=== PATIENT | male | born 1940 | race Caucasian/White ===

== ENCOUNTER → 2017-04-06 | Outpatient (REF) | payer OTHER ==
[2017-04-06 18:53] LABS: MEAN CORPUSCULAR HEMOGLOBIN 32.9 pg (27.0-33.0); MEAN CORPUSCULAR HGB CONC 34.2 g/dl (32.0-36.5); MEAN CORPUSCULAR VOLUME 96.2 fl (80.0-96.0); RED CELL DISTRIBUTION WIDTH 13.9 % (11.5-14.5); WHITE BLOOD COUNT 8.4 K/mm3 (4.0-10.0)
[2017-04-06 19:05] LABS: VITAMIN B12 LEVEL 697 PG/ML (247-911)
[2017-04-06 19:06] LABS: FOLATE > 24.0 NG/ML (>5.4)
[2017-04-06 19:09] LABS: ALBUMIN 3.7 GM/DL (3.2-5.2); ALBUMIN/GLOBULIN RATIO 1.28 (1.00-1.93); ALKALINE PHOSPHATASE 80 U/L (45-117); ALT/SGPT 42 U/L (12-78); ANION GAP 8 MEQ/L (8-16); AST/SGOT 20 U/L (15-37); BILIRUBIN,TOTAL 0.6 MG/DL (0.2-1.0); BLOOD UREA NITROGEN 17 MG/DL (7-18); CALCIUM LEVEL 8.6 MG/DL (8.8-10.2); CARBON DIOXIDE LEVEL 27 MEQ/L (21-32); CHLORIDE LEVEL 105 MEQ/L (98-107); CHOLESTEROL LEVEL 135 MG/DL (<200); CREATININE FOR GFR 1.18 MG/DL (0.70-1.30); FREE T4 0.99 NG/DL (0.76-1.46); GLOMERULAR FILTRATION RATE > 60.0 (>42); GLUCOSE, FASTING 247 MG/DL (83-110); POTASSIUM SERUM 3.9 MEQ/L (3.5-5.1); SODIUM LEVEL 140 MEQ/L (136-145); TOTAL PROTEIN 6.6 GM/DL (6.4-8.2); TRIGLYCERIDES LEVEL 176 MG/DL (<150); URIC ACID 4.3 MG/DL (3.5-7.2)
== END ==
LOC: M SFHCADAM 13:55
PROVIDERS: ATTEND Nurse Practitioner Family
DX: N18.3 Chronic kidney disease, stage 3 (moderate) (principal); E11.49 Type 2 diabetes mellitus with other diabetic neurological complication; R41.3 Other amnesia; E78.2 Mixed hyperlipidemia; M10.9 Gout, unspecified

== ENCOUNTER → 2017-05-26 | Outpatient (REF) | payer OTHER ==
[~2017-05-26] MED LIST: ALLO15TA PO; AMLO5TAB2 PO; BISO5TAB5 PO; FOSI40TA PO; FURO40TA2 PO; INSUN SC; INSUR SC; SIMV20TA2 PO; TYLE500T78 PO; XARE20TA PO
[2017-05-26 20:31] LABS: MEAN CORPUSCULAR HEMOGLOBIN 33.4 pg (27.0-33.0); WHITE BLOOD COUNT 9.7 K/mm3 (4.0-10.0)
== END ==
LOC: M SFHCADAM 14:43
PROVIDERS: ATTEND Family Medicine
DX: K62.5 Hemorrhage of anus and rectum (principal)

== ENCOUNTER → 2017-07-05 | Outpatient (REF) | payer OTHER ==
[2017-07-05 13:25] LABS: ALBUMIN 3.9 GM/DL (3.2-5.2); ALBUMIN/GLOBULIN RATIO 1.39 (1.00-1.93); BILIRUBIN,TOTAL 0.8 MG/DL (0.2-1.0); CALCIUM LEVEL 8.4 MG/DL (8.8-10.2); CREATININE FOR GFR 1.25 MG/DL (0.70-1.30); GLOMERULAR FILTRATION RATE 59.9 (>42); POTASSIUM SERUM 4.2 MEQ/L (3.5-5.1); TOTAL PROTEIN 6.7 GM/DL (6.4-8.2)
== END ==
LOC: M SFHCADAM 11:06
PROVIDERS: ATTEND Nurse Practitioner Family
DX: E11.49 Type 2 diabetes mellitus with other diabetic neurological complication (principal)
CPT/HCPCS: 80053; 83036; G0463

== ENCOUNTER 2017-07-15 09:22 | Outpatient (CLI) | payer OTHER ==
[~2017-07-15] VITALS: Ht 167.6 cm; Wt 93.9 kg
[~2017-07-15 09:22] MED LIST changes: +NS 1,000 ML IV ONE
--- NOTE | 2017-07-15 11:38 | ROOR ---
Patient Name: Caleb Nicholas Procedure Date: 07/15/2017 11:19 AM Date of : 1940 Age: 76 Room: [facility] Gender: Male Note Status: Finalized Procedure: Colonoscopy Indications: Rectal bleeding Providers: Jose Wong Jr, MD Referring MD: James Prado MD Requesting Provider: Medicines: Propofol per Anesthesia Complications: No immediate complications. Procedure: Pre-Anesthesia Assessment: - Prior to the procedure, a History and Physical was performed, and patient medications and allergies were reviewed. The patient is competent. The risks and benefits of the procedure and the sedation options and risks were discussed with the patient. All questions were answered and informed consent was obtained. Patient identification and proposed procedure were verified by the physician and the nurse in the pre-procedure area and in the procedure room. Mental Status Examination: alert and oriented. Airway Examination: normal oropharyngeal airway and neck mobility. Respiratory Examination: clear to auscultation. CV Examination: normal. ASA Grade Assessment: II - A patient with mild systemic disease. After reviewing the risks and benefits, the patient was deemed in satisfactory condition to undergo the procedure. The anesthesia plan was to use moderate sedation / analgesia (conscious sedation). Immediately prior to administration of medications, the patient was re-assessed for adequacy to receive sedatives. The heart rate, respiratory rate, oxygen saturations, blood pressure, adequacy of pulmonary ventilation, and response to care were monitored throughout the procedure. The physical status of the patient was re-assessed after the procedure. The Colonoscope was introduced through the anus and advanced to the cecum, identified by appendiceal orifice and ileocecal valve. The colonoscopy was performed without difficulty. The patient tolerated the procedure well. The quality of the bowel preparation was adequate and good. Findings: Multiple small and large-mouthed diverticula were found in the sigmoid colon. Non-bleeding internal hemorrhoids were found during endoscopy. The hemorrhoids were moderate. The rectum, recto-sigmoid colon, descending colon, transverse colon, ascending colon, cecum, appendiceal orifice and ileocecal valve appeared normal. Impression: - Diverticulosis in the sigmoid colon. - Non-bleeding internal hemorrhoids. - The rectum, recto-sigmoid colon, descending colon, transverse colon, ascending colon, cecum, appendiceal orifice and ileocecal valve are normal. - No specimens collected. Recommendation: - Discharge patient to home (ambulatory). - Repeat colonoscopy in 10 years for screening purposes. Jose Wong MD Jose Wong Jr, MD 07/15/2017 11:37:26 AM This report has been signed electronically. Number of Addenda: 0 Note Initiated On: 07/15/2017 11:19 AM Estimated Blood Loss: Estimated blood loss: none.
[2017-07-15 11:55] VITALS: BP 140/67
[2017-07-15] MEDS ORDERED: PROPOFOL 500 MG/50 ML VIAL As Ordered ONE (11:57)
[2017-07-15] MEDS ORDERED: LIDOCAINE 2% INJ 100 MG/5 ML SDV (FOR ANES.) As Ordered ONE (11:57)
== END 2017-07-15 12:05 | disposition home or self-care (01) ==
LOC: M OPP 09:22
PROVIDERS: ATTEND Surgery
DX: K62.5 Hemorrhage of anus and rectum (principal); Z86.010 Personal history of colon polyps; K64.8 Other hemorrhoids; K57.30 Diverticulosis of large intestine without perforation or abscess without bleeding; I10 Essential (primary) hypertension; E11.9 Type 2 diabetes mellitus without complications; I48.91 Unspecified atrial fibrillation; N40.0 Benign prostatic hyperplasia without lower urinary tract symptoms; G62.9 Polyneuropathy, unspecified; E78.5 Hyperlipidemia, unspecified; I25.10 Atherosclerotic heart disease of native coronary artery without angina pectoris; E66.9 Obesity, unspecified; G47.30 Sleep apnea, unspecified; M10.9 Gout, unspecified; E88.81 Metabolic syndrome and other insulin resistance; Z95.5 Presence of coronary angioplasty implant and graft; Z79.4 Long term (current) use of insulin; Z79.899 Other long term (current) drug therapy; Z88.6 Allergy status to analgesic agent; Z88.8 Allergy status to other drugs, medicaments and biological substances

== ENCOUNTER → 2017-07-19 | Outpatient (CLI) | payer OTHER ==
[~2017-07-19] MED LIST changes: -NS 1,000 ML IV ONE
--- NOTE | 2017-07-19 08:48 | REP ---
CT brain without contrast: 07/19/2017. Clinical history: Memory impairment. Comparison: 08/22/2015. Findings: Noncontrast images show the lateral ventricles midline, symmetric, dilated in proportion to the moderately severe diffuse atrophy. There is laminar necrosis involving the occipital cortex bilaterally, left greater than right and unchanged. There is extensive chronic small vessel white matter ischemic disease of aging in periventricular deep and subcortical white matter tracts. Degree of atrophy is same or slightly greater than the study 2 years ago. There is calcification in the right basal ganglia, unchanged. No acute infarct, intra or extra-axial hemorrhage, mass, mass effect or edema. Mastoids and sphenoid sinuses are clear. There is bilateral ethmoid sinus mucosal thickening. The skull base and calvarium show no fracture or focal lesion. Brainstem was intact. There is a cerebral atrophy, unchanged. Impression: 1. Moderately diffuse cerebral atrophy with extensive small vessel ischemic disease and ventriculomegaly in proportion. 2. Laminar necrosis occipital cortex bilaterally, left greater than right. Old ischemia. 3. Vascular calcifications carotid siphons and some ethmoid sinus mucosal disease. Signed by Reid Ma MD 07/19/2017 03:38 P
== END ==
LOC: M RAD 07:21
PROVIDERS: ATTEND Nurse Practitioner Family
DX: R41.3 Other amnesia (principal)

== ENCOUNTER → 2017-09-06 | Outpatient (CLI) | payer OTHER ==
--- NOTE | 2017-09-06 13:43 | REP ---
Comparison CT 07/19/2017. Areas of increased signal intensity on T2-weighted images are present in the periventricular and subcortical white matter. This represents small vessel ischemic disease. Slight increased signal intensity on T1-weighted images is present in the cortex of the posterior left parietal lobe and left occipital lobe. This represents laminar necrosis. There is no acute intraparenchymal hemorrhage, acute infarct, mass, or midline shift. The ventricular system and cortical sulci are dilated consistent with mild volume loss. There is no extracerebral collection. Mucosal thickening is present in then ethmoid and maxillary sinuses. IMPRESSION: 1. Small vessel ischemic disease. 2. There is laminar necrosis in the posterior left parietal and left occipital lobes. 3. Mild volume loss. Signed by Stanley Ríos MD 09/06/2017 02:18 P
== END ==
LOC: M PLARAD 10:27
PROVIDERS: ATTEND Psychiatry & Neurology Neurology
DX: R41.3 Other amnesia (principal); G47.51 Confusional arousals; I73.9 Peripheral vascular disease, unspecified
CPT/HCPCS: 70551; G0463

== ENCOUNTER 2017-11-23 18:20 | Observation (INO) | payer OTHER ==
[2017-11-23 22:03] LABS: ANION GAP 5 MEQ/L (8-16); BLOOD UREA NITROGEN 20 MG/DL (7-18); CALCIUM LEVEL 8.4 MG/DL (8.8-10.2); CARBON DIOXIDE LEVEL 33 MEQ/L (21-32); CHLORIDE LEVEL 104 MEQ/L (98-107); CREATININE FOR GFR 1.18 MG/DL (0.70-1.30); GLOMERULAR FILTRATION RATE > 60.0 (>42); GLUCOSE, FASTING 205 MG/DL (83-110); POTASSIUM SERUM 3.3 MEQ/L (3.5-5.1); SODIUM LEVEL 142 MEQ/L (136-145)
[2017-11-23 22:04] LABS: BASO % 0.4 % (0.0-1.0); EOS # 0.2 10^3/uL (0.0-0.50); HEMATOCRIT 36.3 % (42.0-52.0); HEMOGLOBIN 12.5 g/dl (14.0-18.0); IMMATURE GRANULOCYTE % 0.3 % (0-0); LYMPH % 21.4 % (24.0-44.0); MEAN CORPUSCULAR HEMOGLOBIN 32.3 pg (27.0-33.0); MEAN CORPUSCULAR HGB CONC 34.4 g/dl (32.0-36.5); MEAN CORPUSCULAR VOLUME 93.8 fl (80.0-96.0); MONO # 0.8 10^3/uL (0.0-0.8); MONO % 8.8 % (0.0-5.0); NEUTROPHILS # 6.4 10^3/uL (1.8-7.7); NEUTROPHILS % 67.1 % (36.0-66.0); PLATELET COUNT, AUTOMATED 184 10^3/uL (150-450); RED BLOOD COUNT 3.87 10^6/uL (4.30-6.10); WHITE BLOOD COUNT 9.5 10^3/uL (4.0-10.0)
[2017-11-23 22:06] LABS: NT-PRO BNP 2454 PG/ML (<450)
[2017-11-23 22:15] LABS: INR 1.94; PROTHROMBIN TIME 22.8 SECONDS (12.4-14.5)
[2017-11-23 22:16] LABS: PARTIAL THROMBOPLASTIN TIME 56.8 SECONDS (26.8-37.9)
[2017-11-23] MEDS: FUROSEMIDE 100 MG/10 ML VIAL (J1940) IV (23:00)
[2017-11-23] MEDS: POTASSIUM CHLORIDE 10 MEQ SR TABLET PO (23:30)
[2017-11-24 00:42] LABS: CK-MB VALUE MASS 5.2 NG/ML (0.0-3.6); CPK CREATINE PHOSPHOKINASE 198 U/L (39-308); MB/CK RELATIVE INDEX 2.62 (< OR =4); TROPONIN I < 0.02 NG/ML (< 0.10)
[2017-11-24] MEDS ORDERED: ONDANSETRON 4MG/2ML VIAL (J2405) IV (01:45)
[2017-11-24] MEDS ORDERED: DEXTROSE 50% 50 ML SYRINGE IV (01:45)
[2017-11-24] MEDS ORDERED: GLUCOSE 4 GM CHEW TABLET PO (01:45)
[2017-11-24] MEDS ORDERED: GLUCAGON FOR INJ 1 MG VIAL (J1610) SC (01:45)
[2017-11-24] MEDS: BISOPROLOL FUMARATE 5 MG TAB PO ×3 (03:48→20:23)
[2017-11-24] MEDS: DOCUSATE SODIUM 100 MG CAP PO ×3 (03:48→20:23)
[2017-11-24] MEDS: SIMVASTATIN 20 MG TAB PO ×2 (03:53→20:23)
[2017-11-24] MEDS: amLODIPine 5 MG TAB PO ×2 (03:53→20:24)
[2017-11-24] MEDS: RIVAROXABAN 20 MG TAB (XARELTO) PO ×2 (03:53→20:24)
[2017-11-24 06:02] LABS: CK-MB VALUE MASS 3.8 NG/ML (0.0-3.6); CPK CREATINE PHOSPHOKINASE 142 U/L (39-308); MB/CK RELATIVE INDEX 2.67 (< OR =4); TROPONIN I < 0.02 NG/ML (< 0.10)
[2017-11-24] MEDS: FUROSEMIDE 40 MG/4 ML VIAL (J1940) IV ×3 (06:05→17:58)
[2017-11-24 06:35] LABS: BEDSIDE GLUCOSE 212 MG/DL (83-110)
[2017-11-24] MEDS: HumaLOG INSULIN (NovoLOG) PER UNIT SC ×4 (08:19→21:00)
[2017-11-24] MEDS: DONEPEZIL 5 MG TAB PO (08:19)
[2017-11-24] MEDS: SERTRALINE HCL 50 MG TAB PO (08:19)
[2017-11-24] MEDS: FOSINOPRIL 20 MG TAB PO (08:20)
[2017-11-24] MEDS: ALLOPURINOL 300 MG TAB PO (08:20)
[2017-11-24 12:22] LABS: BEDSIDE GLUCOSE 196 MG/DL (83-110)
[2017-11-24 13:38] LABS: CPK CREATINE PHOSPHOKINASE 142 U/L (39-308); TROPONIN I < 0.02 NG/ML (< 0.10)
[2017-11-24 13:39] LABS: CK-MB VALUE MASS 3.3 NG/ML (0.0-3.6); MB/CK RELATIVE INDEX 2.32 (< OR =4)
[2017-11-24] MEDS ORDERED: NITROGLYCERIN 0.4 MG SUBL TABLET As Ordered (16:54)
[2017-11-24 16:58] LABS: BEDSIDE GLUCOSE 258 MG/DL (83-110)
[2017-11-24] MEDS ORDERED: NITROGLYCERIN 0.4 MG SUBL TABLET SL (17:00)
[2017-11-24] MEDS: LORazepam 0.5 MG TAB PO (17:14)
[2017-11-24 18:04] LABS: CK-MB VALUE MASS 3.3 NG/ML (0.0-3.6); CPK CREATINE PHOSPHOKINASE 135 U/L (39-308); MB/CK RELATIVE INDEX 2.44 (< OR =4); TROPONIN I < 0.02 NG/ML (< 0.10)
[2017-11-24] MEDS: ACETAMINOPHEN TAB 650MG DOSE (2X325MG) PO (20:16)
[2017-11-24 21:35] LABS: BEDSIDE GLUCOSE 261 MG/DL (83-110)
== END 2017-11-24 22:05 | disposition left against medical advice (07) ==
LOC: M ED INP 11-24 01:44 → M ED 18:20 → M MSPAV 11-24 03:36
DX: I50.9 Heart failure, unspecified (principal); I48.91 Unspecified atrial fibrillation; I13.0 Hypertensive heart and chronic kidney disease with heart failure and stage 1 through stage 4 chronic kidney disease, or unspecified chronic kidney disease; F03.91 Unspecified dementia, unspecified severity, with behavioral disturbance; E11.42 Type 2 diabetes mellitus with diabetic polyneuropathy; Z91.81 History of falling; E78.5 Hyperlipidemia, unspecified; N18.3 Chronic kidney disease, stage 3 (moderate); I25.10 Atherosclerotic heart disease of native coronary artery without angina pectoris; R53.1 Weakness; E11.22 Type 2 diabetes mellitus with diabetic chronic kidney disease; N40.0 Benign prostatic hyperplasia without lower urinary tract symptoms; M10.9 Gout, unspecified; Z95.5 Presence of coronary angioplasty implant and graft; Z86.73 Personal history of transient ischemic attack (TIA), and cerebral infarction without residual deficits; Z79.899 Other long term (current) drug therapy; Z79.01 Long term (current) use of anticoagulants; Z79.4 Long term (current) use of insulin; Z88.8 Allergy status to other drugs, medicaments and biological substances
CPT/HCPCS: 96376

== ENCOUNTER → 2017-12-07 | Outpatient (REF) | payer OTHER ==
[2017-12-07 20:41] LABS: HEMOGLOBIN 11.8 g/dl (14.0-18.0); MEAN CORPUSCULAR HGB CONC 31.9 g/dl (32.0-36.5); MEAN CORPUSCULAR VOLUME 97.1 fl (80.0-96.0); PLATELET COUNT, AUTOMATED 208 10^3/uL (150-450); RED BLOOD COUNT 3.81 10^6/uL (4.30-6.10); RED CELL DISTRIBUTION WIDTH 13.1 % (11.5-14.5); WHITE BLOOD COUNT 10.5 10^3/uL (4.0-10.0)
[2017-12-07 20:55] LABS: ESTIMATED AVERAGE GLUCOSE 174 MG/DL (60-110); HEMOGLOBIN A1c 7.7 %
[2017-12-07 21:01] LABS: ALBUMIN/GLOBULIN RATIO 1.29 (1.00-1.93); ALKALINE PHOSPHATASE 115 U/L (45-117); ALT/SGPT 35 U/L (12-78); ANION GAP 7 MEQ/L (8-16); AST/SGOT 25 U/L (7-37); BILIRUBIN,TOTAL 0.7 MG/DL (0.2-1.0); BLOOD UREA NITROGEN 16 MG/DL (7-18); CALCIUM LEVEL 8.9 MG/DL (8.8-10.2); CARBON DIOXIDE LEVEL 32 MEQ/L (21-32); CHLORIDE LEVEL 105 MEQ/L (98-107); CHOLESTEROL LEVEL 125 MG/DL (<200); CHOLESTEROL RISK RATIO 3.205 (<5); GLOMERULAR FILTRATION RATE > 60.0 (>42); GLUCOSE, FASTING 69 MG/DL (70-100); HDL CHOLESTEROL 39 MG/DL (>40); LDL CHOLESTEROL 57.8 MG/DL (<100); NON-HDL-C 86 MG/DL; SODIUM LEVEL 144 MEQ/L (136-145); TOTAL PROTEIN 7.1 GM/DL (6.4-8.2); TRIGLYCERIDES LEVEL 141 MG/DL (<150); URIC ACID 4.3 MG/DL (3.5-7.2)
== END ==
LOC: M SFHCADAM 11:15
DX: F03.91 Unspecified dementia, unspecified severity, with behavioral disturbance (principal); N18.3 Chronic kidney disease, stage 3 (moderate); E11.49 Type 2 diabetes mellitus with other diabetic neurological complication; E11.22 Type 2 diabetes mellitus with diabetic chronic kidney disease; I25.10 Atherosclerotic heart disease of native coronary artery without angina pectoris; I65.29 Occlusion and stenosis of unspecified carotid artery; M10.9 Gout, unspecified
CPT/HCPCS: 84550

== ENCOUNTER → 2018-01-27 | Outpatient (REF) | payer OTHER ==
[2018-01-27 12:17] LABS: HEMATOCRIT 38.5 % (42.0-52.0); MEAN CORPUSCULAR HEMOGLOBIN 31.4 pg (27.0-33.0); MEAN CORPUSCULAR HGB CONC 33.8 g/dl (32.0-36.5); PLATELET COUNT, AUTOMATED 217 10^3/uL (150-450); RED BLOOD COUNT 4.14 10^6/uL (4.30-6.10); WHITE BLOOD COUNT 13.4 10^3/uL (4.0-10.0)
[2018-01-27 12:33] LABS: ALBUMIN/GLOBULIN RATIO 1.25 (1.00-1.93); ALKALINE PHOSPHATASE 102 U/L (45-117); ALT/SGPT 36 U/L (12-78); ANION GAP 8 MEQ/L (8-16); AST/SGOT 26 U/L (7-37); BILIRUBIN,TOTAL 0.7 MG/DL (0.2-1.0); BLOOD UREA NITROGEN 26 MG/DL (7-18); CALCIUM LEVEL 9.3 MG/DL (8.8-10.2); CARBON DIOXIDE LEVEL 30 MEQ/L (21-32); CHLORIDE LEVEL 104 MEQ/L (98-107); CHOLESTEROL LEVEL 128 MG/DL (<200); CHOLESTEROL RISK RATIO 3.282 (<5); CREATININE FOR GFR 1.24 MG/DL (0.70-1.30); GLOMERULAR FILTRATION RATE > 60.0 (>42); GLUCOSE, FASTING 89 MG/DL (70-100); HDL CHOLESTEROL 39 MG/DL (>40); NON-HDL-C 89 MG/DL; POTASSIUM SERUM 4.5 MEQ/L (3.5-5.1); SODIUM LEVEL 142 MEQ/L (136-145); TOTAL PROTEIN 7.2 GM/DL (6.4-8.2); TRIGLYCERIDES LEVEL 160 MG/DL (<150)
[2018-01-27 13:40] LABS: ESTIMATED AVERAGE GLUCOSE 166 MG/DL (60-110); HEMOGLOBIN A1c 7.4 %
[2018-01-29 00:06] LABS: DEAMIDATED GLIADIN ABS, IgA 1 units (0-19); DEAMIDATED GLIADIN ABS, IgG 1 units (0-19); ENDOMYSIAL ANTIBODY IgA Negative (Negative); IMMUNOGLOBULIN A 100 mg/dL (61-437); t-TRANSGLUTAMINASE(tTG) IgA <2 U/mL (0-3); t-TRANSGLUTAMINASE(tTG) IgG <2 U/mL (0-5)
== END ==
LOC: M SFHCADAM 10:11
DX: K52.9 Noninfective gastroenteritis and colitis, unspecified (principal); N18.3 Chronic kidney disease, stage 3 (moderate); E11.49 Type 2 diabetes mellitus with other diabetic neurological complication; I25.10 Atherosclerotic heart disease of native coronary artery without angina pectoris; I65.29 Occlusion and stenosis of unspecified carotid artery
CPT/HCPCS: 80053

== ENCOUNTER → 2018-04-11 | Outpatient (REF) | payer OTHER ==
[2018-04-15 00:07] LABS: O+P EXAM Final report (.)
[2018-04-15 00:07] LABS: CALPROTECTIN STOOL <16 ug/g (0-120)
== END ==
LOC: M LAB REF 12:14
DX: R19.7 Diarrhea, unspecified (principal)
CPT/HCPCS: 87177

== ENCOUNTER 2018-05-12 13:34 | Inpatient (IN) | payer OTHER ==
[2018-05-12 14:48] LABS: BASO % 0.2 % (0.0-1.0); EOS # 0.1 10^3/uL (0.0-0.50); EOS % 1.1 % (0.0-3.0); HEMATOCRIT 36.2 % (42.0-52.0); HEMOGLOBIN 12.5 g/dl (13.5-17.5); IMMATURE GRANULOCYTE % 0.3 % (0-3.0); LYMPH # 1.8 10^3/uL (1.5-4.5); LYMPH % 15.6 % (24.0-44.0); MEAN CORPUSCULAR HEMOGLOBIN 32.7 pg (27.0-33.0); MEAN CORPUSCULAR HGB CONC 34.5 g/dl (32.0-36.5); MEAN CORPUSCULAR VOLUME 94.8 fl (80.0-96.0); MONO # 1.3 10^3/uL (0.0-0.8); MONO % 11.1 % (0.0-5.0); NEUTROPHILS # 8.2 10^3/uL (1.8-7.7); NEUTROPHILS % 71.7 % (36.0-66.0); PLATELET COUNT, AUTOMATED 186 10^3/uL (150-450); RED BLOOD COUNT 3.82 10^6/uL (4.30-6.10); RED CELL DISTRIBUTION WIDTH 13.1 % (11.5-14.5); WHITE BLOOD COUNT 11.5 10^3/uL (4.0-10.0)
[2018-05-12] MEDS: NS 1,000 ML IV ×2 (15:06→20:55)
[2018-05-12 15:12] LABS: ACETAMINOPHEN LEVEL < 2.0 UG/ML (10.0-30.0); ALBUMIN 3.5 GM/DL (3.2-5.2); ALBUMIN/GLOBULIN RATIO 0.92 (1.00-1.93); ALKALINE PHOSPHATASE 95 U/L (45-117); ALT/SGPT 30 U/L (12-78); ANION GAP 9 MEQ/L (8-16); AST/SGOT 19 U/L (7-37); BILIRUBIN,DIRECT 0.3 MG/DL (0.0-0.2); BLOOD UREA NITROGEN 30 MG/DL (7-18); CALCIUM LEVEL 8.9 MG/DL (8.8-10.2); CARBON DIOXIDE LEVEL 28 MEQ/L (21-32); CHLORIDE LEVEL 102 MEQ/L (98-107); CPK CREATINE PHOSPHOKINASE 76 U/L (39-308); CREATININE FOR GFR 1.64 MG/DL (0.70-1.30); ETHYL ALCOHOL (ETHANOL) 0.005 % (0.000-0.010); GLOMERULAR FILTRATION RATE 43.7 (>42); GLUCOSE, FASTING 207 MG/DL (70-100); POTASSIUM SERUM 4.1 MEQ/L (3.5-5.1); SALICYLATE LEVEL < 1.7 MG/DL (5.0-30.0); SODIUM LEVEL 139 MEQ/L (136-145); TOTAL PROTEIN 7.3 GM/DL (6.4-8.2); TROPONIN I < 0.02 NG/ML (< 0.10)
[2018-05-12 15:17] LABS: CK-MB VALUE MASS 1.7 NG/ML (<3.6); MB/CK RELATIVE INDEX 2.23 (< OR =4)
[2018-05-12 15:27] LABS: LACTIC ACID SEPSIS PROTOCOL 1.3 MMOL/L (0.4-2.0)
[2018-05-12] MEDS: RIVAROXABAN 20 MG TAB (XARELTO) PO (18:00)
[2018-05-12] MEDS ORDERED: ACETAMINOPHEN 500 MG TAB PO (18:30)
[2018-05-12] MEDS ORDERED: GLUCAGON FOR INJ 1 MG VIAL (J1610) SC (18:30)
[2018-05-12] MEDS ORDERED: DEXTROSE 50% 50 ML SYRINGE IV (18:30)
[2018-05-12] MEDS ORDERED: GLUCOSE 4 GM CHEW TABLET PO (18:30)
[2018-05-12 18:34] LABS: INR 1.52; PROTHROMBIN TIME 18.5 SECONDS (12.1-14.4)
[2018-05-12 19:12] LABS: KETONE, URINE AUTO RFX NEGATIVE (NEGATIVE); LEUKOCYTE ESTERASE UR AUTO RFX NEGATIVE (NEGATIVE); MUCUS, URINE RFX SMALL (NEGATIVE); NITRITE, URINE AUTO RFX NEGATIVE (NEGATIVE); RBC, URINE AUTO RFX 0 /HPF (0-3); SPECIFIC GRAVITY UR AUTO RFX 1.013 (1.002-1.035); SQUAM EPITHELIAL CELL UR AURFX 0 /HPF (0-6); WBC, URINE AUTO RFX 1 /HPF (0-3)
[2018-05-12 19:45] LABS: AMPHETAMINES LEVEL URINE NEGATIVE (NEGATIVE); BARBITURATES URINE NEGATIVE (NEGATIVE); BENZODIAZEPINES URINE NEGATIVE (NEGATIVE); CANNABINOIDS URINE NEGATIVE (NEGATIVE); COCAINE METABOLITE URINE NEGATIVE (NEGATIVE); METHADONE URINE NEGATIVE (NEGATIVE); OPIATES URINE NEGATIVE (NEGATIVE); PHENCYCLIDINE URINE NEGATIVE (NEGATIVE)
[2018-05-12] MEDS: LORazepam 2 MG/ML VIAL (J2060) IV (19:58)
[2018-05-12] MEDS: HumaLOG INSULIN (NovoLOG) PER UNIT SC (20:59)
[2018-05-12] MEDS: BISOPROLOL FUMARATE 5 MG TAB PO ×2 (21:00→21:06)
[2018-05-12] MEDS: SIMVASTATIN 20 MG TAB PO ×2 (21:00→21:06)
[2018-05-12] MEDS: QUEtiapine FUMARATE 25 MG TAB PO ×2 (21:00→21:06)
[2018-05-12 21:02] LABS: BEDSIDE GLUCOSE 239 MG/DL (83-110)
[2018-05-12] MEDS ORDERED: HEPARIN SOD (PORCINE) 5000 UNITS/ML VIAL SC (22:00)
[2018-05-13] MEDS: NS 1,000 ML IV ×2 (01:46→10:20)
[2018-05-13 05:24] LABS: ANION GAP 6 MEQ/L (8-16); BLOOD UREA NITROGEN 19 MG/DL (7-18); CALCIUM LEVEL 8.8 MG/DL (8.8-10.2); CARBON DIOXIDE LEVEL 29 MEQ/L (21-32); CHLORIDE LEVEL 105 MEQ/L (98-107); CREATININE FOR GFR 1.17 MG/DL (0.70-1.30); GLOMERULAR FILTRATION RATE > 60.0 (>42); GLUCOSE, FASTING 241 MG/DL (70-100); POTASSIUM SERUM 4.3 MEQ/L (3.5-5.1); SODIUM LEVEL 140 MEQ/L (136-145)
[2018-05-13] MEDS ORDERED: HumaLOG INSULIN (NovoLOG) PER UNIT SC ×2 (07:30→12:00)
[2018-05-13] MEDS ORDERED: DEXTROSE 50% 50 ML SYRINGE IV (09:00)
[2018-05-13] MEDS ORDERED: GLUCAGON FOR INJ 1 MG VIAL (J1610) SC (09:00)
[2018-05-13] MEDS ORDERED: GLUCOSE 4 GM CHEW TABLET PO (09:00)
[2018-05-13] MEDS: HumuLIN R (REGULAR) INSULIN (NovoLIN R) **100U/ML** PER UNIT SC (10:06)
[2018-05-13] MEDS: HumuLIN N INSULIN (NovoLIN N) PER UNIT SC (10:06)
[2018-05-13] MEDS: FOSINOPRIL 20 MG TAB PO (10:13)
[2018-05-13] MEDS: FUROSEMIDE 40 MG TAB PO ×2 (10:13→17:43)
[2018-05-13] MEDS: SERTRALINE HCL 50 MG TAB PO (10:14)
[2018-05-13] MEDS: BISOPROLOL FUMARATE 5 MG TAB PO ×2 (10:14→21:18)
[2018-05-13] MEDS: ALLOPURINOL 300 MG TAB PO (10:14)
[2018-05-13] MEDS: HALOPERIDOL 1 MG TAB PO ×3 (13:02→21:18)
[2018-05-13 13:07] LABS: BEDSIDE GLUCOSE 380 MG/DL (83-110)
[2018-05-13] MEDS: HumaLOG INSULIN (NovoLOG) PER UNIT SC ×3 (14:13→21:00)
[2018-05-13 16:47] LABS: BEDSIDE GLUCOSE 302 MG/DL (83-110)
[2018-05-13] MEDS: RIVAROXABAN 20 MG TAB (XARELTO) PO (17:42)
[2018-05-13 19:06] LABS: BEDSIDE GLUCOSE 248 MG/DL (83-110)
[2018-05-13 20:50] LABS: BEDSIDE GLUCOSE 205 MG/DL (83-110)
[2018-05-13] MEDS: QUEtiapine FUMARATE 25 MG TAB PO (21:18)
[2018-05-13] MEDS: SIMVASTATIN 20 MG TAB PO (21:18)
[2018-05-13] MEDS: amLODIPine 5 MG TAB PO (21:18)
[2018-05-13] MEDS: ACETAMINOPHEN 500 MG TAB PO (23:39)
[2018-05-14 05:23] LABS: BASO % 0.2 % (0.0-1.0); EOS # 0.1 10^3/uL (0.0-0.50); HEMATOCRIT 36.2 % (42.0-52.0); HEMOGLOBIN 12.4 g/dl (13.5-17.5); IMMATURE GRANULOCYTE % 0.4 % (0-3.0); LYMPH # 1.4 10^3/uL (1.5-4.5); LYMPH % 15.6 % (24.0-44.0); MEAN CORPUSCULAR HGB CONC 34.3 g/dl (32.0-36.5); MEAN CORPUSCULAR VOLUME 93.5 fl (80.0-96.0); MONO # 1.1 10^3/uL (0.0-0.8); NEUTROPHILS # 6.4 10^3/uL (1.8-7.7); NEUTROPHILS % 70.8 % (36.0-66.0); PLATELET COUNT, AUTOMATED 165 10^3/uL (150-450); RED BLOOD COUNT 3.87 10^6/uL (4.30-6.10); WHITE BLOOD COUNT 9.1 10^3/uL (4.0-10.0)
[2018-05-14 05:26] LABS: ANION GAP 7 MEQ/L (8-16); BLOOD UREA NITROGEN 22 MG/DL (7-18); CALCIUM LEVEL 8.7 MG/DL (8.8-10.2); CARBON DIOXIDE LEVEL 29 MEQ/L (21-32); CHLORIDE LEVEL 105 MEQ/L (98-107); CREATININE FOR GFR 1.06 MG/DL (0.70-1.30); GLOMERULAR FILTRATION RATE > 60.0 (>42); GLUCOSE, FASTING 293 MG/DL (70-100); POTASSIUM SERUM 4.1 MEQ/L (3.5-5.1); SODIUM LEVEL 141 MEQ/L (136-145)
[2018-05-14] MEDS: FUROSEMIDE 40 MG TAB PO ×2 (09:44→18:27)
[2018-05-14] MEDS: ALLOPURINOL 300 MG TAB PO (09:44)
[2018-05-14] MEDS: SERTRALINE HCL 50 MG TAB PO (09:44)
[2018-05-14] MEDS: BISOPROLOL FUMARATE 5 MG TAB PO ×2 (09:45→22:02)
[2018-05-14] MEDS: ASPIRIN 81 MG ENTERIC TAB PO (09:45)
[2018-05-14] MEDS: HumuLIN N INSULIN (NovoLIN N) PER UNIT SC ×2 (09:46→18:29)
[2018-05-14] MEDS: HumaLOG INSULIN (NovoLOG) PER UNIT SC ×4 (09:47→22:02)
[2018-05-14] MEDS: FOSINOPRIL 20 MG TAB PO (09:48)
[2018-05-14 12:20] LABS: BEDSIDE GLUCOSE 352 MG/DL (83-110)
[2018-05-14 16:57] LABS: BEDSIDE GLUCOSE 229 MG/DL (83-110)
[2018-05-14] MEDS: ACETAMINOPHEN 500 MG TAB PO (18:26)
[2018-05-14] MEDS: RIVAROXABAN 20 MG TAB (XARELTO) PO (18:27)
[2018-05-14 20:42] LABS: BEDSIDE GLUCOSE 326 MG/DL (83-110)
[2018-05-14] MEDS: amLODIPine 5 MG TAB PO (22:02)
[2018-05-14] MEDS: QUEtiapine FUMARATE 25 MG TAB PO (22:08)
[2018-05-15] MEDS: ACETAMINOPHEN 500 MG TAB PO (02:00)
[2018-05-15 06:56] LABS: ANION GAP 7 MEQ/L (8-16); BLOOD UREA NITROGEN 23 MG/DL (7-18); CALCIUM LEVEL 8.6 MG/DL (8.8-10.2); CARBON DIOXIDE LEVEL 31 MEQ/L (21-32); CHLORIDE LEVEL 101 MEQ/L (98-107); CREATININE FOR GFR 1.12 MG/DL (0.70-1.30); GLOMERULAR FILTRATION RATE > 60.0 (>42); GLUCOSE, FASTING 184 MG/DL (70-100); POTASSIUM SERUM 3.6 MEQ/L (3.5-5.1); SODIUM LEVEL 139 MEQ/L (136-145)
[2018-05-15] MEDS: HumuLIN N INSULIN (NovoLIN N) PER UNIT SC (09:00)
[2018-05-15] MEDS: HumaLOG INSULIN (NovoLOG) PER UNIT SC ×2 (09:00→12:30)
[2018-05-15] MEDS: FUROSEMIDE 40 MG TAB PO (09:01)
[2018-05-15] MEDS: SERTRALINE HCL 50 MG TAB PO (09:01)
[2018-05-15] MEDS: ASPIRIN 81 MG ENTERIC TAB PO (09:01)
[2018-05-15] MEDS: ALLOPURINOL 300 MG TAB PO (09:03)
[2018-05-15] MEDS: FOSINOPRIL 20 MG TAB PO (09:03)
[2018-05-15] MEDS: BISOPROLOL FUMARATE 5 MG TAB PO (09:04)
[2018-05-15 12:07] LABS: BEDSIDE GLUCOSE 288 MG/DL (83-110)
== END 2018-05-15 12:50 | disposition home or self-care (01) | DRG 65 ==
LOC: M MS5PR 05-14 11:03 → M ED 13:34 → M ED INP 19:36 → M PCU 20:41
DX: I63.9 Cerebral infarction, unspecified (principal); I69.354 Hemiplegia and hemiparesis following cerebral infarction affecting left non-dominant side; I50.32 Chronic diastolic (congestive) heart failure; I13.0 Hypertensive heart and chronic kidney disease with heart failure and stage 1 through stage 4 chronic kidney disease, or unspecified chronic kidney disease; N17.9 Acute kidney failure, unspecified; F03.91 Unspecified dementia, unspecified severity, with behavioral disturbance; N18.3 Chronic kidney disease, stage 3 (moderate); I48.91 Unspecified atrial fibrillation; R29.810 Facial weakness; E11.40 Type 2 diabetes mellitus with diabetic neuropathy, unspecified; E11.22 Type 2 diabetes mellitus with diabetic chronic kidney disease; E78.5 Hyperlipidemia, unspecified; N40.0 Benign prostatic hyperplasia without lower urinary tract symptoms; I25.10 Atherosclerotic heart disease of native coronary artery without angina pectoris; Z79.4 Long term (current) use of insulin; Z79.899 Other long term (current) drug therapy; Z79.01 Long term (current) use of anticoagulants; Z88.8 Allergy status to other drugs, medicaments and biological substances; Z88.6 Allergy status to analgesic agent; Z91.048 Other nonmedicinal substance allergy status; Z95.9 Presence of cardiac and vascular implant and graft, unspecified; Z90.49 Acquired absence of other specified parts of digestive tract; Z98.41 Cataract extraction status, right eye; Z98.42 Cataract extraction status, left eye

== ENCOUNTER → 2018-06-22 | Outpatient (REF) | payer OTHER ==
[2018-06-22 12:41] LABS: BASO # 0.1 10^3/uL (0.0-0.2); BASO % 0.6 % (0.0-1.0); EOS # 0.4 10^3/uL (0.0-0.50); HEMATOCRIT 36.4 % (42.0-52.0); HEMOGLOBIN 12.4 g/dl (13.5-17.5); IMMATURE GRANULOCYTE % 0.4 % (0-3.0); LYMPH # 2.7 10^3/uL (1.5-4.5); LYMPH % 22.2 % (24.0-44.0); MEAN CORPUSCULAR HEMOGLOBIN 32.6 pg (27.0-33.0); MEAN CORPUSCULAR HGB CONC 34.1 g/dl (32.0-36.5); MEAN CORPUSCULAR VOLUME 95.8 fl (80.0-96.0); MONO # 0.9 10^3/uL (0.0-0.8); MONO % 7.6 % (0.0-5.0); NEUTROPHILS # 8.1 10^3/uL (1.8-7.7); NEUTROPHILS % 66.2 % (36.0-66.0); PLATELET COUNT, AUTOMATED 208 10^3/uL (150-450); RED CELL DISTRIBUTION WIDTH 13.9 % (11.5-14.5); WHITE BLOOD COUNT 12.2 10^3/uL (4.0-10.0)
== END ==
LOC: M SFHCADAM 11:14
DX: S50.311A Abrasion of right elbow, initial encounter (principal); Z51.81 Encounter for therapeutic drug level monitoring; Z79.01 Long term (current) use of anticoagulants; K92.1 Melena; X58.XXXA Exposure to other specified factors, initial encounter; Y92.9 Unspecified place or not applicable
CPT/HCPCS: 85025

== ENCOUNTER → 2018-07-15 | Outpatient (REF) | payer OTHER | LOC: M SFHCPLAZ 15:55 | DX: J02.9 Acute pharyngitis, unspecified (principal) | CPT/HCPCS: 87081 ==

== ENCOUNTER → 2018-07-15 | Outpatient (CLI) | payer OTHER ==
[2018-07-15 17:11] LABS: ALBUMIN/GLOBULIN RATIO 1.43 (1.00-1.93); ALKALINE PHOSPHATASE 94 U/L (45-117); ALT/SGPT 42 U/L (12-78); ANION GAP 12 MEQ/L (8-16); AST/SGOT 39 U/L (7-37); BILIRUBIN,TOTAL 0.9 MG/DL (0.2-1.0); BLOOD UREA NITROGEN 39 MG/DL (7-18); CALCIUM LEVEL 8.9 MG/DL (8.8-10.2); CARBON DIOXIDE LEVEL 25 MEQ/L (21-32); CHLORIDE LEVEL 103 MEQ/L (98-107); CREATININE FOR GFR 1.54 MG/DL (0.70-1.30); GLUCOSE, FASTING 241 MG/DL (70-100); POTASSIUM SERUM 4.3 MEQ/L (3.5-5.1); SODIUM LEVEL 140 MEQ/L (136-145); TOTAL PROTEIN 6.8 GM/DL (6.4-8.2)
[2018-07-15 17:38] LABS: BASO % 0.2 % (0.0-1.0); EOS % 0.2 % (0.0-3.0); HEMOGLOBIN 12.1 g/dl (13.5-17.5); IMMATURE GRANULOCYTE % 0.4 % (0-3.0); LYMPH # 0.7 10^3/uL (1.5-4.5); LYMPH % 4.3 % (24.0-44.0); MEAN CORPUSCULAR HEMOGLOBIN 32.7 pg (27.0-33.0); MEAN CORPUSCULAR HGB CONC 33.6 g/dl (32.0-36.5); MEAN CORPUSCULAR VOLUME 97.3 fl (80.0-96.0); MONO # 1.2 10^3/uL (0.0-0.8); MONO % 7.3 % (0.0-5.0); NEUTROPHILS # 14.4 10^3/uL (1.8-7.7); NEUTROPHILS % 87.6 % (36.0-66.0); PLATELET COUNT, AUTOMATED 158 10^3/uL (150-450); WHITE BLOOD COUNT 16.5 10^3/uL (4.0-10.0)
== END ==
LOC: M LAB 15:50
DX: J02.9 Acute pharyngitis, unspecified (principal); J98.8 Other specified respiratory disorders
CPT/HCPCS: 71046

== ENCOUNTER 2018-08-08 15:09 | Emergency (ER) | payer OTHER ==
[2018-08-08 17:53] LABS: BASO % 0.3 % (0.0-1.0); EOS # 0.2 10^3/uL (0.0-0.50); EOS % 1.6 % (0.0-3.0); HEMATOCRIT 36.5 % (42.0-52.0); HEMOGLOBIN 12.5 g/dl (13.5-17.5); IMMATURE GRANULOCYTE % 0.3 % (0-3.0); LYMPH # 2.4 10^3/uL (1.5-4.5); LYMPH % 19.9 % (24.0-44.0); MEAN CORPUSCULAR HGB CONC 34.2 g/dl (32.0-36.5); MEAN CORPUSCULAR VOLUME 93.4 fl (80.0-96.0); MONO # 1.1 10^3/uL (0.0-0.8); MONO % 8.8 % (0.0-5.0); NEUTROPHILS # 8.2 10^3/uL (1.8-7.7); NEUTROPHILS % 69.1 % (36.0-66.0); PLATELET COUNT, AUTOMATED 191 10^3/uL (150-450); RED BLOOD COUNT 3.91 10^6/uL (4.30-6.10); RED CELL DISTRIBUTION WIDTH 13.9 % (11.5-14.5); WHITE BLOOD COUNT 11.9 10^3/uL (4.0-10.0)
[2018-08-08 18:17] LABS: ALT/SGPT 23 U/L (12-78); ANION GAP 8 MEQ/L (8-16); AST/SGOT 16 U/L (7-37); BLOOD UREA NITROGEN 16 MG/DL (7-18); CARBON DIOXIDE LEVEL 29 MEQ/L (21-32); CHLORIDE LEVEL 102 MEQ/L (98-107); GLOMERULAR FILTRATION RATE > 60.0 (>42); GLUCOSE, FASTING 281 MG/DL (70-100); POTASSIUM SERUM 3.8 MEQ/L (3.5-5.1); SODIUM LEVEL 139 MEQ/L (136-145)
[2018-08-08 18:18] LABS: ALBUMIN 3.7 GM/DL (3.2-5.2); ALBUMIN/GLOBULIN RATIO 1.16 (1.00-1.93); ALKALINE PHOSPHATASE 96 U/L (45-117); BILIRUBIN,DIRECT 0.3 MG/DL (0.0-0.2); BILIRUBIN,TOTAL 0.8 MG/DL (0.2-1.0); C REACTIVE PROTEIN QUANTITATIV 5.39 MG/DL (0.00-0.30); CPK CREATINE PHOSPHOKINASE 67 U/L (39-308); MB/CK RELATIVE INDEX 3.58 (< OR =4); NT-PRO BNP 1811 PG/ML (<450); TOTAL PROTEIN 6.9 GM/DL (6.4-8.2); TROPONIN I < 0.02 NG/ML (< 0.10)
[2018-08-08] MEDS: AUGMENTIN 875 MG TAB PO (18:29)
== END 2018-08-08 18:35 | disposition home or self-care (01) ==
LOC: M ED 15:09
DX: R07.89 Other chest pain (principal); K02.9 Dental caries, unspecified; R68.84 Jaw pain; I49.1 Atrial premature depolarization; I45.10 Unspecified right bundle-branch block; I44.5 Left posterior fascicular block; F03.90 Unspecified dementia, unspecified severity, without behavioral disturbance, psychotic disturbance, mood disturbance, and anxiety; I25.10 Atherosclerotic heart disease of native coronary artery without angina pectoris; Z95.5 Presence of coronary angioplasty implant and graft; E11.40 Type 2 diabetes mellitus with diabetic neuropathy, unspecified; I10 Essential (primary) hypertension; G47.30 Sleep apnea, unspecified; N18.3 Chronic kidney disease, stage 3 (moderate); N40.0 Benign prostatic hyperplasia without lower urinary tract symptoms; I63.9 Cerebral infarction, unspecified; Z79.82 Long term (current) use of aspirin; Z79.4 Long term (current) use of insulin; Z79.899 Other long term (current) drug therapy; Z88.8 Allergy status to other drugs, medicaments and biological substances; Z88.6 Allergy status to analgesic agent
CPT/HCPCS: 71046

== ENCOUNTER → 2018-12-22 | Outpatient (REF) | payer MEDICARE ==
[~2018-12-22] MED LIST changes: -AMLO5TAB2 PO; +AMLO5TAB6 PO; +ASPI81TAEC PO; +AUGM875T28 PO; +DONE5TAB64 PO; +DONETAB6 PO; -FOSI40TA PO; +FOSI40TA2 PO; +QUET1TAB7 PO; +SERT50TA PO; +ZYLO300T6 PO
[2018-12-22 12:59] LABS: HEMATOCRIT 38.3 % (42.0-52.0); HEMOGLOBIN 12.7 g/dl (13.5-17.5); MEAN CORPUSCULAR HEMOGLOBIN 31.3 pg (27.0-33.0); MEAN CORPUSCULAR HGB CONC 33.2 g/dl (32.0-36.5); MEAN CORPUSCULAR VOLUME 94.3 fl (80.0-96.0); PLATELET COUNT, AUTOMATED 192 10^3/uL (150-450); RED BLOOD COUNT 4.06 10^6/uL (4.30-6.10); WHITE BLOOD COUNT 11.8 10^3/uL (4.0-10.0)
[2018-12-22 14:14] LABS: ALBUMIN 3.9 GM/DL (3.2-5.2); BILIRUBIN,TOTAL 0.6 MG/DL (0.2-1.0); CALCIUM LEVEL 9.3 MG/DL (8.8-10.2); CHOLESTEROL RISK RATIO 4.062 (<5); CREATININE FOR GFR 1.56 MG/DL (0.70-1.30); FREE T4 0.8 NG/DL (0.76-1.46); GLOMERULAR FILTRATION RATE 46.2 (>42); POTASSIUM SERUM 4.9 MEQ/L (3.5-5.1); THYROID STIMULATING HORMONE 3.54 uIU/ML (0.358-3.740); TOTAL 25(OH) VITAMIN D 23.4 NG/ML (30.0-100.0); TOTAL PROTEIN 6.8 GM/DL (6.4-8.2)
[2018-12-22 15:29] LABS: HEMOGLOBIN A1c 8.6 %
== END ==
LOC: M SFHCADAM 10:04
PROVIDERS: ATTEND Family Medicine
DX: E11.49 Type 2 diabetes mellitus with other diabetic neurological complication (principal); I11.0 Hypertensive heart disease with heart failure; I25.10 Atherosclerotic heart disease of native coronary artery without angina pectoris; N18.3 Chronic kidney disease, stage 3 (moderate); I65.29 Occlusion and stenosis of unspecified carotid artery; E78.2 Mixed hyperlipidemia; F03.91 Unspecified dementia, unspecified severity, with behavioral disturbance; M10.9 Gout, unspecified
CPT/HCPCS: 80053; 80061; 82306; 83036; 84439; 84443; 84550; 85027; G0463

== ENCOUNTER 2019-07-12 10:56 | Emergency (ER) | payer MEDICARE ==
[~2019-07-12] VITALS: Ht 167.6 cm; Wt 101.6 kg
[~2019-07-12 10:56] MED LIST changes: -ALLO15TA PO; +ALLO300T2 PO; -BISO5TAB5 PO; +BISO5TAB9 PO; -FOSI40TA2 PO; +FOSI40TA3 PO; +SERT-141 PO; -SERT50TA PO
[2019-07-12 11:38] LABS: BASO % 0.3 % (0.0-1.0); EOS # 0.3 10^3/uL (0.0-0.5); EOS % 3.4 % (0.0-3.0); HEMATOCRIT 31.5 % (42.0-52.0); HEMOGLOBIN 10.7 g/dl (13.5-17.5); LYMPH % 21.5 % (24.0-44.0); MEAN CORPUSCULAR HEMOGLOBIN 33.3 pg (27.0-33.0); MEAN CORPUSCULAR VOLUME 98.1 fl (80.0-96.0); MONO # 0.7 10^3/uL (0.0-0.8); MONO % 7.5 % (0.0-5.0); NEUTROPHILS # 6.3 10^3/uL (1.5-8.5); NEUTROPHILS % 66.9 % (36.0-66.0); PLATELET COUNT, AUTOMATED 155 10^3/uL (150-450); RED BLOOD COUNT 3.21 10^6/uL (4.30-6.10); WHITE BLOOD COUNT 9.4 10^3/uL (4.0-10.0)
[2019-07-12 11:58] LABS: C REACTIVE PROTEIN QUANTITATIV 1.51 MG/DL (0.00-0.30); CALCIUM LEVEL 8.8 MG/DL (8.8-10.2); CREATININE FOR GFR 1.67 MG/DL (0.70-1.30); GLOMERULAR FILTRATION RATE 42.7 (>42); POTASSIUM SERUM 4.4 MEQ/L (3.5-5.1)
[2019-07-12 12:00] LABS: ERYTHROCYTE SEDIMENTATION RATE 54 mm/hr (0-20)
--- NOTE | 2019-07-12 12:35 | REP ---
Clinical: Trauma . Technique: Boyd scale and color Doppler evaluation using linear high frequency transducer. Findings: Ultrasound examination of the left lower extremity deep venous structures from the common femoral vein to the popliteal vein demonstrates normal compressibility flow and wave patterns in response to respiration and augmentation. There is no evidence for deep venous thrombosis. Impression: No evidence for deep venous thrombosis. Electronically Signed by Wai Decker MD 07/12/2019 12:27 P
--- NOTE | 2019-07-12 12:42 | REP ---
Clinical: Trauma. Technique: Neutral and frog lateral views of the left hip. Findings: Age-related degenerative changes and peripheral vascular disease noted. No obvious acute fracture or dislocation appreciated. Impression: No obvious acute fracture or dislocation. Electronically Signed by Wai Decker MD 07/12/2019 12:34 P
--- NOTE | 2019-07-12 12:43 | REP ---
Clinical: Trauma. Technique: Neutral and frog lateral views of the left femur. Findings: In conjunction with the left hip series, the femur demonstrates degenerative changes without obvious acute fracture or dislocation. Peripheral vascular disease noted. Impression: No obvious acute fracture or dislocation. Electronically Signed by Wai Decker MD 07/12/2019 12:35 P
[2019-07-12 13:21] VITALS: BP 115/55
== END 2019-07-12 13:29 | disposition home or self-care (01) ==
LOC: M ED 10:56
DX: S70.02XA Contusion of left hip, initial encounter (principal); S70.12XA Contusion of left thigh, initial encounter; X58.XXXA Exposure to other specified factors, initial encounter; Y92.018 Other place in single-family (private) house as the place of occurrence of the external cause; I12.9 Hypertensive chronic kidney disease with stage 1 through stage 4 chronic kidney disease, or unspecified chronic kidney disease; N18.3 Chronic kidney disease, stage 3 (moderate); F03.90 Unspecified dementia, unspecified severity, without behavioral disturbance, psychotic disturbance, mood disturbance, and anxiety; N40.0 Benign prostatic hyperplasia without lower urinary tract symptoms; Z79.899 Other long term (current) drug therapy; Z79.82 Long term (current) use of aspirin; Z79.4 Long term (current) use of insulin; Z79.01 Long term (current) use of anticoagulants; Z88.8 Allergy status to other drugs, medicaments and biological substances; Z91.018 Allergy to other foods

== ENCOUNTER → 2019-07-27 | Outpatient (REF) | payer MEDICARE ==
[2019-07-27 20:12] LABS: ALBUMIN 3.6 GM/DL (3.2-5.2); ALT/SGPT 26 U/L (12-78); BILIRUBIN,TOTAL 0.4 MG/DL (0.2-1.0); BLOOD UREA NITROGEN 47 MG/DL (7-18); CALCIUM LEVEL 8.8 MG/DL (8.8-10.2); CARBON DIOXIDE LEVEL 27 MEQ/L (21-32); CHLORIDE LEVEL 100 MEQ/L (98-107); CHOLESTEROL LEVEL 113 MG/DL (<200); CHOLESTEROL RISK RATIO 4.346 (<5); CREATININE FOR GFR 1.76 MG/DL (0.70-1.30); GLOMERULAR FILTRATION RATE 40.1 (>42); GLUCOSE, FASTING 387 MG/DL (70-100); HDL CHOLESTEROL 26 MG/DL (>40); NON-HDL-C 87 MG/DL; SODIUM LEVEL 138 MEQ/L (136-145); TOTAL PROTEIN 6.6 GM/DL (6.4-8.2); TRIGLYCERIDES LEVEL 402 MG/DL (<150)
[2019-07-27 20:13] LABS: HEMATOCRIT 34.6 % (42.0-52.0); HEMOGLOBIN 11.2 g/dl (13.5-17.5); MEAN CORPUSCULAR HEMOGLOBIN 31.6 pg (27.0-33.0); MEAN CORPUSCULAR HGB CONC 32.4 g/dl (32.0-36.5); MEAN CORPUSCULAR VOLUME 97.7 fl (80.0-96.0); PLATELET COUNT, AUTOMATED 222 10^3/uL (150-450); RED BLOOD COUNT 3.54 10^6/uL (4.30-6.10); WHITE BLOOD COUNT 9.2 10^3/uL (4.0-10.0)
[2019-07-27 20:26] LABS: HEMOGLOBIN A1c 8.2 %
== END ==
LOC: M SFHCADAM 15:12
PROVIDERS: ATTEND Family Medicine
DX: K52.9 Noninfective gastroenteritis and colitis, unspecified (principal); E11.621 Type 2 diabetes mellitus with foot ulcer; E78.2 Mixed hyperlipidemia
CPT/HCPCS: 80053; 80061; 83036; 85027; G0463

== ENCOUNTER 2019-11-09 18:06 | Inpatient (IN) | payer MEDICARE ==
[~2019-11-09] VITALS: Ht 165.1 cm; Wt 90.9 kg
[~2019-11-09 18:06] MED LIST changes: +BISO5TAB14 PO; -BISO5TAB9 PO; -SIMV20TA2 PO; +SIMV20TA22 PO
--- NOTE | 2019-11-09 20:47 | REP ---
Clinical: Altered mental status . Comparison: 08/08/2018 . Findings: The mediastinum and cardiac silhouette are stable and within normal limits for portable technique. The lung matos demonstrate chronic interstitial changes without acute consolidation, effusion, or pneumothorax. Skeletal structures are intact. Impression: No acute cardiopulmonary process appreciated. Electronically Signed by Wai Decker MD 11/09/2019 08:38 P
--- NOTE | 2019-11-09 20:54 | REPVR ---
PROCEDURE INFORMATION: Exam: CT Head Without Contrast Exam date and time: 11/09/2019 7:58 PM Age: 79 years old Clinical indication: Altered mental status/memory loss; Confusion or disorientation TECHNIQUE: Imaging protocol: Computed tomography of the head without contrast. Radiation optimization: All CT scans at this facility use at least one of these dose optimization techniques: automated exposure control; mA and/or kV adjustment per patient size (includes targeted exams where dose is matched to clinical indication); or iterative reconstruction. COMPARISON: CT Head without contrast 05/12/2018 2:37 PM FINDINGS: Limitations: Patient motion. Brain: Mild decreased attenuation of the supratentorial white matter is likely secondary to chronic microvascular ischemia. No definite acute intracranial hemorrhage. Bilateral occipital lobe cortical calcification is stable. Ventricles: Ventricular and subarachnoid spaces are age appropriate. Bones/joints: Unremarkable. No acute fracture. Sinuses: Minimal paranasal sinus disease. Mastoid air cells: Visualized mastoid air cells are well aerated. Soft tissues: Unremarkable. Vasculature: Intracranial vascular calcification. IMPRESSION: No acute intracranial abnormality. Electronically signed by: Joe Lomax On 11/09/2019 20:53:51 PM
[2019-11-09] MEDS: DOCUSATE SODIUM 100 MG CAP PO SCH (21:00)
[2019-11-09] MEDS ORDERED: LORazepam 2 MG/ML VIAL (J2060) IV STA (21:04)
[2019-11-09 21:21] LABS: BASO % 0.3 % (0.0-1.0); EOS % 0.4 % (0.0-3.0); HEMATOCRIT 40.6 % (42.0-52.0); HEMOGLOBIN 12.8 g/dl (13.5-17.5); LYMPH # 1.4 10^3/uL (1.5-5.0); LYMPH % 13.4 % (24.0-44.0); MEAN CORPUSCULAR HEMOGLOBIN 29.2 pg (27.0-33.0); MEAN CORPUSCULAR HGB CONC 31.5 g/dl (32.0-36.5); MEAN CORPUSCULAR VOLUME 92.5 fl (80.0-96.0); MONO # 0.7 10^3/uL (0.0-0.8); MONO % 6.4 % (0.0-5.0); NEUTROPHILS # 8.1 10^3/uL (1.5-8.5); NEUTROPHILS % 79.2 % (36.0-66.0); PLATELET COUNT, AUTOMATED 210 10^3/uL (150-450); RED BLOOD COUNT 4.39 10^6/uL (4.30-6.10); WHITE BLOOD COUNT 10.2 10^3/uL (4.0-10.0)
[2019-11-09 22:04] LABS: ACETAMINOPHEN LEVEL < 2.0 UG/ML (10.0-30.0); ALBUMIN 3.8 GM/DL (3.2-5.2); ALT/SGPT 28 U/L (12-78); BILIRUBIN,DIRECT 0.2 MG/DL (0.0-0.2); BLOOD UREA NITROGEN 52 MG/DL (7-18); CALCIUM LEVEL 9.3 MG/DL (8.8-10.2); CARBON DIOXIDE LEVEL 23 MEQ/L (21-32); CHLORIDE LEVEL 100 MEQ/L (98-107); CK-MB VALUE MASS 4.1 NG/ML (<3.6); CPK CREATINE PHOSPHOKINASE 133 U/L (39-308); CREATININE FOR GFR 1.86 MG/DL (0.70-1.30); ETHYL ALCOHOL (ETHANOL) < 0.003 % (0.000-0.010); GLOMERULAR FILTRATION RATE 37.6 (>42); GLUCOSE, FASTING 524 MG/DL (70-100); MB/CK RELATIVE INDEX 3.08 (< OR =4); POTASSIUM SERUM 5.5 MEQ/L (3.5-5.1); SALICYLATE LEVEL < 1.7 MG/DL (5.0-30.0); SODIUM LEVEL 135 MEQ/L (136-145); TOTAL PROTEIN 7.3 GM/DL (6.4-8.2); TROPONIN I < 0.02 NG/ML (< 0.10)
[2019-11-09] MEDS ORDERED: HumuLIN R (REGULAR) INSULIN (NovoLIN R) **100U/ML** PER UNIT SC ONE (22:30)
[2019-11-09 23:31] LABS: AMPHETAMINES LEVEL URINE NEGATIVE (NEGATIVE); BARBITURATES URINE NEGATIVE (NEGATIVE); BENZODIAZEPINES URINE NEGATIVE (NEGATIVE); CANNABINOIDS URINE NEGATIVE (NEGATIVE); COCAINE METABOLITE URINE NEGATIVE (NEGATIVE); METHADONE URINE NEGATIVE (NEGATIVE); OPIATES URINE NEGATIVE (NEGATIVE); PHENCYCLIDINE URINE NEGATIVE (NEGATIVE)
--- NOTE | 2019-11-10 01:00 | HPEPDOC ---
[facility] Medical History & Physical Date of Admission Nov 10, 2019 Date of Service: Nov 10, 2019 Primary Care Physician: James Prado MD Attending Physician: James Prado MD History and Physical TIME OF SERVICE: 3:18 AM CHIEF COMPLAINT: can't care for patient HISTORY OF PRESENT ILLNESS: The histor was obtained from the ER Attending. The patient's had left at the time of my evaluation & does not answer questions. This is a 79-year-old man who was brought to the hospital today by his because she couldn't take care of him anymore; he has been been falling a lot. At the time of my evaluation, the patient was lethargic, intermittently arousable and was not answering questions. 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 Dementia. DM 2 ALLERGIES: Please see below HOME MEDICATIONS: Please see below. PHYSICAL EXAMINATION: VITAL SIGNS: Please see below GEN: well-nourished / well developed HEENT: NCAT / lips acyanotic /mucus membranes moist and pink CVS: RRR/NMRG LUNGS: lungs are clear to auscultation bilaterally on room air ABDOMEN: Contour obese NEURO: Unable to accurately evaluate because the patient is not following commands / he does appear to have myoclonic jerks PSYCH: Lethargic but intermittently arousable with vocal stimuli LABORATORY DATA: See below. IMAGING: CT of the head without contrast " IMPRESSION: No acute intracranial abnormality. " Chest x-ray " Impression: No acute cardiopulmonary process appreciated." MICROBIOLOGY: Please see below. ASSESSMENT: Mr. Nicholas is a 79-year-old male with past medical history of dementia, coronary artery disease, type 2 diabetes, chronic hypertension, atrial fibrillation, BPH, and dyslipidemia, was brought to the ER primarily for placement in a assisted; on initial evaluation he appeared to be having myoclonic jerks and dehydration likely due to hyperglycemia. PLAN: 1. Encephalopathy / Myoclonic Jerks Despite having dementia, the patient seems to be very confused. He has episodes where his eyes are closed and shaking, alternating with episodes where he is intermittently arousable. During the time when he is lucid, he is not following commands; it is possible that he has Augie's paresis. Due to history of CVAs he is at risk of developing seizures. The acute change in his mental status & falls may be also be due to hyperglycemia. CT of the head was unremarkable. Plan: Admit to medical floor/frequent neuro checks/follow-up EEG/the daytime team can follow-up with the patient's in the morning to obtain additional history, and on his mental status once the hyperglycemia has resolved prior to deciding if he needs an MRI of the brain and/or neurology consult / hold simvastatin because it can cause memory impairment, hold quetiapine bc he is sedated 2. Uncontrolled DM w Neuropathy On arrival, his glucose was 524 It is unclear if the patient received his anti-glycemic medications today. His A1c was 8.2 in July 2019 Start A1c will limited life expectancy is around 8.5% Plan: diabetic diet / f/u accuchecks / hypoglycemia protocol / sliding scale insulin / hold Novolin until we can confirm that he has been eating and his mental status is improved 3. Dehydration. Likely due to hyperglycemia. His BUN is 52 and his heart rate is in the 90s Plan: IV fluids / hold furosemide 4. Frequent Falls Plan: PT eval if/ when his mental status improves 5. Mild Leukocytosis. Cause to be determined UA and chest x-ray are unremarkable Plan: Monitor vitals 6. Mild hyperkalemia. His renal function is close to baseline Plan: Telemetry/follow-up BMP in the morning 7. Dyslipidemia / CAD status post stents / hx of CVA Plan: hold simvastatin because it can cause memory impairment 8. Chronic Hypertension His blood pressure has been labile Plan: c/w amlodipine and fosinopril / hold furosemide & bisprolol because beta blockers can cause sedation 9. Atrial fibrillation Plan: c/w rivaroxaban 10. Dementia Plan: social work consult for placement in a assisted 11.Obesity BMI 33.4 Complicates Care DVT PROPHYLAXIS: not needed bc he is in on rivaroxaban DISPOSITION: Likely discharge to assisted after more than 2 midnight's stay Vital Signs Vital Signs Date Time Temp Pulse Resp B/P (MAP) Pulse Ox O2 Delivery O2 Flow Rate FiO2 11/09/19 19:06 116/70 (85) 11/09/19 18:06 97.9 82 20 100 Room Air Laboratory Data Labs 24H Laboratory Tests 2 11/09/19 20:10: Immature Granulocyte % (Auto) 0.3, Neutrophils (%) (Auto) 79.2H, Lymphocytes (%) (Auto) 13.4L, Monocytes (%) (Auto) 6.4H, Eosinophils (%) (Auto) 0.4, Basophils (%) (Auto) 0.3, Neutrophils # (Auto) 8.1, Lymphocytes # (Auto) 1.4L, Monocytes # (Auto) 0.7, Eosinophils # (Auto) 0.0, Basophils # (Auto) 0.0, Nucleated Red Blood Cells % (auto) 0.0, Urine Color STRAW, Urine Appearance CLEAR, Urine pH 6.0, Urine Specific [place] 1.017, Urine Protein NEGATIVE, Urine Glucose (UA) 3+H, Urine Ketones 1+H, Urine Blood NEGATIVE, Urine Nitrite NEGATIVE, Urine Bilirubin NEGATIVE, Urine Urobilinogen 0.2, Urine Leukocyte Esterase NEGATIVE, Urine WBC (Auto) 1, Urine RBC (Auto) 0, Urine Hyaline Casts (Auto) 0, Urine Bacteria (Auto) NEGATIVE, Urine Squamous Epithelial Cells 0, Urine Sperm (Auto) , Anion Gap 12, Glomerular Filtration Rate 37.6L, Calcium Level 9.3, Total Bilirubin 1.0, Direct Bilirubin 0.2, Aspartate Amino Transf (AST/SGOT) 26, Alanine Aminotransferase (ALT/SGPT) 28, Alkaline Phosphatase 126H, Total Creatine Kinase 133, Creatine Kinase MB 4.1H, Creatine Kinase MB Relative Index 3.08, Troponin I < 0.02, Total Protein 7.3, Albumin 3.8, Albumin/Globulin Ratio 1.09, Thyroid Stimulating Hormone (TSH) 1.710, Salicylates Level < 1.7L, Urine Opiates Screen NEGATIVE, Urine Methadone Screen NEGATIVE, Acetaminophen Level < 2.0L, Urine Barbiturates Screen NEGATIVE, Urine Phencyclidine Screen NEGATIVE, Urine Amphetamines Screen NEGATIVE, Urine Benzodiazepines Screen NEGATIVE, Urine Cocaine Metabolite Screen NEGATIVE, Urine Cannabinoids Screen NEGATIVE, Ethyl Alcohol Level < 0.003 11/09/19 20:11: Lactic Acid Level 2.0 11/09/19 20:25: Bedside Glucose (Misc Panel) 515*H CBC/BMP Laboratory Tests 11/09/19 20:10 Microbiology Microbiology 11/09/19 Blood Culture, Received Pending Home Medications Scheduled Allopurinol (Zyloprim) 300 Mg Tab, 300 MG PO DAILY Amlodipine Besylate (Amlodipine Besylate) 5 Mg Tab, 5 MG PO BID Bisoprolol Fumarate (Bisoprolol Fumarate) 5 Mg Tab, 5 MG PO BID Donepezil HCl (Donepezil HCl) 10 Mg Tablet, 10 MG PO QHS Fosinopril Sodium (Fosinopril Sodium) 40 Mg Tab, 40 MG PO DAILY Furosemide (Furosemide) 40 Mg Tab, 40 MG PO BID Insulin Human NPH (Novolin N) 1 Ml Susp, 24 UNIT SC BID Insulin Human Regular (Novolin R) 1 Ml Soln, 10 UNIT SC BID Quetiapine Fumarate (Quetiapine Fumarate) 25 Mg Tab, 25 MG PO QHS Rivaroxaban (Xarelto) 20 Mg Tab, 20 MG PO QHS Sertraline Hcl (Sertraline HCl) 50 Mg Tab, 50 MG PO DAILY Simvastatin (Simvastatin) 20 Mg Tab, 20 MG PO QHS Allergies Coded Allergies: NSAIDS (Non-Steroidal Anti-Inflamma (Verified Allergy, Unknown, 07/12/19) atorvastatin (Verified Allergy, Unknown, 07/12/19) celecoxib (Verified Allergy, Unknown, 07/12/19) gabapentin (Verified Allergy, Unknown, 07/12/19) naproxen (Verified Allergy, Unknown, 07/12/19) nut. tx, glucose intolerance,lactose-free,soy (Verified Allergy, Unknown, 07/12/19) nutritional therapy, glucose intolerance,soy (Verified Allergy, Unknown, 07/12/19) prasugrel (Verified Allergy, Unknown, 07/12/19) pravastatin (Verified Allergy, Unknown, 07/12/19) vitamin K2 (Verified Allergy, Unknown, 07/12/19) A-FIB/CHADSVASC A-FIB History Current/History of A-Fib/PAF?: Yes Current PO Anticoag Therapy: Yes BUSHRA ANGEL MD Nov 10, 2019 01:00
[2019-11-10] MEDS ORDERED: GLUCOSE 4 GM CHEW TABLET PO PRN (01:15)
[2019-11-10] MEDS ORDERED: MOM 30ML SUSPENSION UDC PO PRN (01:15)
[2019-11-10] MEDS ORDERED: ACETAMINOPHEN TAB 650MG DOSE (2X325MG) PO PRN (01:15)
[2019-11-10] MEDS ORDERED: DEXTROSE 50% 50 ML SYRINGE IV PRN (01:15)
[2019-11-10] MEDS ORDERED: MAALOX 30 ML SUSP *UDC PO PRN (01:15)
[2019-11-10] MEDS ORDERED: GLUCAGON FOR INJ 1 MG VIAL (J1610) SC PRN (01:15)
[2019-11-10 02:20] VITALS: BP 152/60
[2019-11-10] MEDS ORDERED: HumaLOG INSULIN (NovoLOG) PER UNIT SC ONE (02:30)
[2019-11-10] MEDS: NS 1,000 ML IV SCH ×3 (03:21→23:56)
[2019-11-10 06:00] VITALS: BP 158/73
[2019-11-10] MEDS ORDERED: HumaLOG INSULIN (NovoLOG) PER UNIT SC SCH ×3 (06:00→21:00)
[2019-11-10] MEDS ORDERED: DONE10TA90 PO (06:16)
[2019-11-10] MEDS: amLODIPine 5 MG TAB PO SCH ×2 (09:00→10:44)
[2019-11-10] MEDS: DOCUSATE SODIUM 100 MG CAP PO SCH ×3 (09:00→22:30)
[2019-11-10] MEDS: SERTRALINE HCL 50 MG TAB PO SCH ×2 (09:00→10:41)
[2019-11-10] MEDS: FOSINOPRIL 20 MG TAB PO SCH (09:00)
--- NOTE | 2019-11-10 12:05 | IPNPDOC ---
Subjective Date Seen The patient was seen on 11/10/19. Subjective Chief Complaint/HPI patient not communicating with nursing Events since last encounter Nursing expressed concerns this morning that they were not able to communicate with him. Besides not able to communicate with him they're also not able to get him to eat anything. There has been no family here today. General: Reports: ROS Unobtainable (patient has significant dementia) Objective Physical Examination General Exam: Positive: No Acute Distress (he is lying on his right side and a semi- position when I entered the room.); Negative: Alert (he responds to moderate touch and repeated for vocal questioning. His responses are single words or grunts) Eye Exam: Negative: Sclera icteric ENT Exam: Negative: Mucous membr. moist/pink (mucous membranes are mild to moderately drowsy) Neck Exam: Negative: Lymphadenopathy Chest Exam: Positive: Clear to auscultation, Normal air movement Heart Exam: Positive: Rate Normal, Normal S1, Normal S2 Abdomen Exam: Positive: Normal bowel sounds, Soft; Negative: Tenderness Extremity Exam: Negative: Edema Psych Exam: Negative: Memory Intact, Oriented x 3 (he is not oriented to person) Assessment /Plan Problems (1) Hyperglycemia Response to Treatment: Uncontrolled Discussed With: Nurse Problem Specific Plan: Repeat Tests Problem Text: From review of his outpatient record it looks like he may be on 24 units of regular insulin twice daily. I'm not certain why this would be his regimen, but I'm going to start him on 15 units of Levemir is every 6 hours fingersticks and insulin sliding scale. We need to be cautious with the amount of insulin will give him, even though he is currently hyperglycemic, because his oral intake is currently very poor nonexistent. I have asked the nursing staff to contact his to see if she has any tips for how to get him to eat better, or if she is able and willing to come in and feed him herself. For now we will try to feed him a consistent carbohydrate pured diet because I'm honestly not sure what he eats at home. (2) PAULO (acute kidney injury) Status: Acute Problem Specific Plan: Repeat Labs Problem Text: He is currently on IV fluids 100 mL an hour. We'll see if we can get him to take oral fluids as well, this seems unlikely at present. (3) Dehydration Problem Text: As above. He has a MOLST filled out (which I put on the chart) the indicating no artificial feeding and a trial of IV hydration. We will need to work carefully with his to determine the proper length of that trial, especially if we are not able to get him to eat. (4) Dementia Status: Chronic Response to Treatment: Progressing Discussed With: Nurse Problem Text: It appears that his dementia has progressed to a severe stage. It's also possible there is an element of delirium on top of this, perhaps precipitated by the hyperglycemia and dehydration. At present I see no fluctuation in his mental status. (5) Atrial fibrillation Status: Chronic Problem Text: He is anticoagulated with Xarelto. We've needed to start him on a renally dosed regimen. If his renal function improves he'll need to be put back up to full strength. Plan/VTE VTE Prophylaxis Ordered?: Yes (Xarelto) VS, I&O, 24H, Fishbone Vital Signs/I&O Vital Signs Date Time Temp Pulse Resp B/P (MAP) Pulse Ox O2 Delivery O2 Flow Rate FiO2 11/10/19 06:00 98.0 75 20 158/73 (101) 96 11/10/19 02:20 Room Air I&O- Last 24 Hours up to 6 AM 11/10/19 06:00 Intake Total 60 ml Output Total 120 ml Balance -60 ml Laboratory Data 24H LABS Laboratory Tests 2 11/09/19 20:10: Immature Granulocyte % (Auto) 0.3, Neutrophils (%) (Auto) 79.2H, Lymphocytes (%) (Auto) 13.4L, Monocytes (%) (Auto) 6.4H, Eosinophils (%) (Auto) 0.4, Basophils (%) (Auto) 0.3, Neutrophils # (Auto) 8.1, Lymphocytes # (Auto) 1.4L, Monocytes # (Auto) 0.7, Eosinophils # (Auto) 0.0, Basophils # (Auto) 0.0, Nucleated Red Blood Cells % (auto) 0.0, Urine Color STRAW, Urine Appearance CLEAR, Urine pH 6.0, Urine Specific [place] 1.017, Urine Protein NEGATIVE, Urine Glucose (UA) 3+H, Urine Ketones 1+H, Urine Blood NEGATIVE, Urine Nitrite NEGATIVE, Urine Bilirubin NEGATIVE, Urine Urobilinogen 0.2, Urine Leukocyte Esterase NEGATIVE, Urine WBC (Auto) 1, Urine RBC (Auto) 0, Urine Hyaline Casts (Auto) 0, Urine Bacteria (Auto) NEGATIVE, Urine Squamous Epithelial Cells 0, Urine Sperm (Auto) , Anion Gap 12, Glomerular Filtration Rate 37.6L, Calcium Level 9.3, Total Bilirubin 1.0, Direct Bilirubin 0.2, Aspartate Amino Transf (AST/SGOT) 26, Vahid ne Aminotransferase (ALT/SGPT) 28, Alkaline Phosphatase 126H, Total Creatine Kinase 133, Creatine Kinase MB 4.1H, Creatine Kinase MB Relative Index 3.08, Troponin I < 0.02, Total Protein 7.3, Albumin 3.8, Albumin/Globulin Ratio 1.09, Thyroid Stimulating Hormone (TSH) 1.710, Salicylates Level < 1.7L, Urine Opiates Screen NEGATIVE, Urine Methadone Screen NEGATIVE, Acetaminophen Level < 2.0L, Urine Barbiturates Screen NEGATIVE, Urine Phencyclidine Screen NEGATIVE, Urine Amphetamines Screen NEGATIVE, Urine Benzodiazepines Screen NEGATIVE, Urine Cocaine Metabolite Screen NEGATIVE, Urine Cannabinoids Screen NEGATIVE, Ethyl Alcohol Level < 0.003 11/09/19 20:11: Lactic Acid Level 2.0 11/09/19 20:25: Bedside Glucose (Misc Panel) 515*H 11/10/19 02:13: Bedside Glucose (Misc Panel) 420H 11/10/19 04:16: Bedside Glucose (Misc Panel) 466H 11/10/19 05:38: Osmolality 321H 11/10/19 06:17: Bedside Glucose (Misc Panel) 276H CBC/BMP Laboratory Tests 11/09/19 20:10 Microbiology Microbiology 11/10/19 Blood Culture, Received Pending 11/09/19 Blood Culture, Received Pending Clarke Valdivai MD Nov 10, 2019 12:05 pm
[2019-11-10 12:30] LABS: BASO % 0.2 % (0.0-1.0); EOS # 0.1 10^3/uL (0.0-0.5); HEMATOCRIT 42.5 % (42.0-52.0); HEMOGLOBIN 13.4 g/dl (13.5-17.5); LYMPH # 1.9 10^3/uL (1.5-5.0); LYMPH % 15.1 % (24.0-44.0); MEAN CORPUSCULAR HEMOGLOBIN 29.6 pg (27.0-33.0); MEAN CORPUSCULAR HGB CONC 31.5 g/dl (32.0-36.5); MEAN CORPUSCULAR VOLUME 93.8 fl (80.0-96.0); MONO # 0.9 10^3/uL (0.0-0.8); MONO % 7.7 % (0.0-5.0); NEUTROPHILS # 9.3 10^3/uL (1.5-8.5); NEUTROPHILS % 75.6 % (36.0-66.0); PLATELET COUNT, AUTOMATED 210 10^3/uL (150-450); RED BLOOD COUNT 4.53 10^6/uL (4.30-6.10); WHITE BLOOD COUNT 12.3 10^3/uL (4.0-10.0)
[2019-11-10 13:09] LABS: ALBUMIN 3.8 GM/DL (3.2-5.2); CALCIUM LEVEL 9.6 MG/DL (8.8-10.2); CREATININE FOR GFR 1.41 MG/DL (0.70-1.30); GLOMERULAR FILTRATION RATE 51.8 (>42); PHOSPHORUS LEVEL 3.4 MG/DL (2.5-4.9); POTASSIUM SERUM 4.4 MEQ/L (3.5-5.1)
[2019-11-10 14:00] VITALS: BP 148/62
--- NOTE | 2019-11-10 15:04 | ECGEPIP ---
[facility] [place] - ED Test Date: 2019-11-09 Pat Name: ILIR MONSON Department: Room: [place] [address] Gender: Male Diazo Technician: DANIEL : 1940 Requested By: MEG Em Order Number: [id number] Reading MD: Micah Qureshi Measurements Intervals [place] Rate: 84 P: [place]: 0 QRS: 117 QRSD: 127 T: 1 QT: 397 QTc: 470 Interpretive Statements ATRIAL FIBRILLATION WITH ABERRANT CONDUCTION OR VENTRICULAR PREMATURE COMPLEXES RBBB and LPFB Prolonged QTc interval Baseline artifact Similar to tracing done 05-12-18 Electronically Signed on 11-10-2019 15:04:36 EST by Micah Qureshi
[2019-11-10] MEDS ORDERED: RIVAROXABAN 20 MG TAB (XARELTO) PO SCH (18:00)
[2019-11-10] MEDS ORDERED: RIVAROXABAN 15 MG TAB (XARELTO) PO SCH (18:00)
[2019-11-10] MEDS ORDERED: LEVEMIR (INSULIN DETEMIR) 1 UNITS/0.01ML SC SCH (21:00)
[2019-11-10 23:59] VITALS: BP 148/86
[2019-11-11] MEDS ORDERED: HumaLOG INSULIN (NovoLOG) PER UNIT SC ONE ×3 (02:00→05:45)
[2019-11-11 06:00] VITALS: BP 132/88
[2019-11-11] MEDS ORDERED: HumaLOG INSULIN (NovoLOG) PER UNIT SC SCH (06:00)
[2019-11-11 06:35] LABS: HEMATOCRIT 39.8 % (42.0-52.0); HEMOGLOBIN 12.8 g/dl (13.5-17.5); MEAN CORPUSCULAR HGB CONC 32.2 g/dl (32.0-36.5); MEAN CORPUSCULAR VOLUME 93.4 fl (80.0-96.0); PLATELET COUNT, AUTOMATED 224 10^3/uL (150-450); RED BLOOD COUNT 4.26 10^6/uL (4.30-6.10); WHITE BLOOD COUNT 18.4 10^3/uL (4.0-10.0)
[2019-11-11 06:56] LABS: CALCIUM LEVEL 9.2 MG/DL (8.8-10.2); CREATININE FOR GFR 1.62 MG/DL (0.70-1.30); GLOMERULAR FILTRATION RATE 44.1 (>42); POTASSIUM SERUM 4.4 MEQ/L (3.5-5.1)
[2019-11-11] MEDS: SERTRALINE HCL 50 MG TAB PO SCH (08:49)
[2019-11-11 08:53] VITALS: BP 164/77
[2019-11-11] MEDS: amLODIPine 5 MG TAB PO SCH (08:53)
[2019-11-11] MEDS: NS 1,000 ML IV SCH (08:53)
[2019-11-11] MEDS: FOSINOPRIL 20 MG TAB PO SCH (08:53)
[2019-11-11] MEDS: DOCUSATE SODIUM 100 MG CAP PO SCH ×2 (08:53→19:45)
[2019-11-11] MEDS ORDERED: MORPHINE SULFATE ORAL SOLN 10 MG/5 ML UD SL PRN (12:15)
[2019-11-11] MEDS ORDERED: LORazepam 1 MG TAB PO PRN (12:15)
[2019-11-11] MEDS ORDERED: SCOPOLAMINE 1MG TRANSDERMAL PATCH TOP PRN (12:15)
[2019-11-11] MEDS: LORazepam 2 MG/ML VIAL (J2060) IV PRN ×4 (13:30→17:07)
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
[2019-11-11] MEDS: MORPHINE 2 MG/ML 1ML VIAL (J2270) IV PRN (18:08)
[2019-11-12] MEDS ORDERED: LORazepam 2 MG/ML VIAL (J2060) As Ordered ONE ×4 (00:36→23:31)
[2019-11-12] MEDS: LORazepam 2 MG/ML VIAL (J2060) IV PRN ×6 (00:41→23:33)
[2019-11-12] MEDS: DOCUSATE SODIUM 100 MG CAP PO SCH ×2 (09:00→20:04)
--- NOTE | 2019-11-12 15:39 | IPN ---
DATE: 11/10/2019 Casa was placed on comfort measures yesterday after discussion with his . He is currently comfortable. He was a little agitated earlier today, but has responded to his comfort medications. When I checked in on him, he was sleeping peacefully.
[2019-11-13] MEDS: MORPHINE 2 MG/ML 1ML VIAL (J2270) IV PRN ×2 (05:52→14:42)
[2019-11-13] MEDS: DOCUSATE SODIUM 100 MG CAP PO SCH (09:00)
[2019-11-13] MEDS: LORazepam 2 MG/ML VIAL (J2060) IV PRN ×3 (10:35→21:12)
[2019-11-14] MEDS: MORPHINE 2 MG/ML 1ML VIAL (J2270) IV PRN ×3 (00:21→11:39)
[2019-11-14] MEDS: LORazepam 2 MG/ML VIAL (J2060) IV PRN ×2 (02:42→05:35)
--- NOTE | 2019-11-14 10:57 | IPNPDOC ---
Subjective Date Seen The patient was seen on 11/14/19. Subjective Chief Complaint/HPI dehydration, hyperglycemia, dementia Events since last encounter patient sleeping when I entered room. Nursing reports good comfort. On wait list for [facility]. General: Reports: ROS Unobtainable Objective Physical Examination General Exam: Positive: No Acute Distress (sleeping); Negative: Alert Eye Exam: Negative: Sclera icteric Neck Exam: Negative: Lymphadenopathy Chest Exam: Positive: Clear to auscultation, Normal air movement Heart Exam: Positive: Rate Normal, Normal S1, Normal S2 Abdomen Exam: Positive: Normal bowel sounds, Soft; Negative: Tenderness Extremity Exam: Negative: Edema Psych Exam: Positive: Oriented x 3 (sleeping); Negative: Memory Intact Assessment /Plan Problems (1) Dementia Status: Chronic Response to Treatment: Progressing Discussed With: Nurse Problem Text: 11/14/18: Currently [employer]. waiting for availability at [facility]. It appears that his dementia has progressed to a severe stage. It's also possible there is an element of delirium on top of this, perhaps precipitated by the hyperglycemia and dehydration. At present I see no fluctuation in his mental status. (2) Hyperglycemia Response to Treatment: Uncontrolled Discussed With: Nurse Problem Specific Plan: Repeat Tests Problem Text: From review of his outpatient record it looks like he may be on 24 units of regular insulin twice daily. I'm not certain why this would be his regimen, but I'm going to start him on 15 units of Levemir is every 6 hours fingersticks and insulin sliding scale. We need to be cautious with the amount of insulin will give him, even though he is currently hyperglycemic, because his oral intake is currently very poor nonexistent. I have asked the nursing staff to contact his to see if she has any tips for how to get him to eat better, or if she is able and willing to come in and feed him herself. For now we will try to feed him a consistent carbohydrate pured diet because I'm honestly not sure what he eats at home. (3) PAULO (acute kidney injury) Status: Acute Problem Specific Plan: Repeat Labs Problem Text: He is currently on IV fluids 100 mL an hour. We'll see if we can get him to take oral fluids as well, this seems unlikely at present. (4) Dehydration Problem Text: As above. He has a MOLST filled out (which I put on the chart) the indicating no artificial feeding and a trial of IV hydration. We will need to work carefully with his to determine the proper length of that trial, especially if we are not able to get him to eat. (5) Atrial fibrillation Status: Chronic Problem Text: He is anticoagulated with Xarelto. We've needed to start him on a renally dosed regimen. If his renal function improves he'll need to be put back up to full strength. Plan/VTE VTE Prophylaxis Ordered?: Yes (Xarelto) VS, I&O, 24H, Fishbone Vital Signs/I&O Vital Signs Date Time Temp Pulse Resp B/P (MAP) Pulse Ox O2 Delivery O2 Flow Rate FiO2 11/13/19 06:02 Room Air 11/11/19 18:18 18 11/11/19 08:53 164/77 11/11/19 08:53 104 11/11/19 06:00 98.1 99 I&O- Last 24 Hours up to 6 AM 11/14/19 06:00 Intake Total 0 ml Balance 0 ml Laboratory Data Microbiology Microbiology 11/10/19 Blood Culture - Preliminary, Resulted No Growth after 72 hours. All specime... 11/09/19 Blood Culture - Preliminary, Resulted No Growth after 72 hours. All specime... Alberta James POLICY CHANGE CLERK Nov 14, 2019 10:57
--- NOTE | 2019-11-20 11:43 | DSES ---
DATE OF ADMISSION: 11/10/2019 DATE OF EXPIRATION: 11/14/2019 PRINCIPAL DIAGNOSIS: Multisystem organ failure secondary to end stage dementia. HISTORY: Caleb Nicholas was admitted in a semi position, unresponsive from home. He had been having dementia with increasing problems with behavioral disturbance over the last year and eventually was admitted unresponsive. HOSPITAL COURSE: The patient's family opted for comfort measures, which was appropriate. We instituted comfort measures that withdrew his medications intended to prolong life, treated only towards comfort and he on comfort measures on 11/14/2019.
== END 2019-11-14 14:36 | disposition expired | DRG 884 ==
LOC: M ED 18:06 → M ED INP 11-10 00:59 → ENRESERV 11-10 01:18 → M MSPAV 11-10 02:18
PROVIDERS: ADMIT Internal Medicine; ATTEND Family Medicine
DX: F03.91 Unspecified dementia, unspecified severity, with behavioral disturbance (principal); N17.9 Acute kidney failure, unspecified; G93.40 Encephalopathy, unspecified; R29.6 Repeated falls; I10 Essential (primary) hypertension; I48.91 Unspecified atrial fibrillation; N40.1 Benign prostatic hyperplasia with lower urinary tract symptoms; E11.40 Type 2 diabetes mellitus with diabetic neuropathy, unspecified; E78.5 Hyperlipidemia, unspecified; Z98.61 Coronary angioplasty status; Z86.73 Personal history of transient ischemic attack (TIA), and cerebral infarction without residual deficits; G25.3 Myoclonus; E11.65 Type 2 diabetes mellitus with hyperglycemia; E86.0 Dehydration; D72.829 Elevated white blood cell count, unspecified; E87.5 Hyperkalemia; E66.9 Obesity, unspecified; Z68.33 Body mass index [BMI] 33.0-33.9, adult; Z79.01 Long term (current) use of anticoagulants; Z79.4 Long term (current) use of insulin; Z79.899 Other long term (current) drug therapy; Z88.1 Allergy status to other antibiotic agents; Z88.8 Allergy status to other drugs, medicaments and biological substances; Z91.018 Allergy to other foods; Z66 Do not resuscitate; Z51.5 Encounter for palliative care